=== PATIENT | male | born 1940 | race Caucasian/White ===

== ENCOUNTER 2017-08-18 10:35 | Outpatient (CLI) | payer MEDICARE ==
[2017-08-18 11:51] LABS: #Basophils 0.1 thou/uL (0.0-0.2); #Eosinphils 0.3 thou/uL (0.0-0.7); #Lymphocytes 1.4 thou/uL (1.20-3.40); #Monocytes 0.6 thou/uL (0.11-0.59); #Neutrophils 7.5 thou/uL (1.40-6.50); %Basophils 1.1 % (0.0-1.0); %Eosinophils 3.2 % (0.0-10.0); %Lymphocytes 14.1 % (21.0-51.0); %Neutrophils 75.7 % (42.0-75.0); Hemoglobin 16.3 g/dL (14.0-18.0); Mean Corpuscular HGB CONC 33.8 g/dL (32.0-36.0); Mean Corpuscular Hemoglobin 31.2 pg (27.0-31.0); Mean Corpuscular Volume 92.3 fl (80.0-94.0); Mean Platelet Volume 7.9 fL (7.4-10.4); Platelet Count 193 thou/uL (130-400); Red Blood Cell (RBC) Count 5.24 mill/uL (4.70-6.10); White Blood Cell (WBC) Count 9.9 thou/uL (4.8-10.8)
[2017-08-18 12:09] LABS: ALT (SGPT) 19 U/L (8-55); AST (SGOT) 19 U/L (5-34); Albumin 4.1 g/dL (3.4-4.8); Alkaline Phosphatase 105 U/L (40-150); Anion Gap 13 mmol/L (10-20); BUN (Urea Nitrogen) 19 mg/dL (8.4-25.7); Bilirubin, Total 0.8 mg/dL (0.2-1.2); Calc. Creatinine Clearance 0 mL/min (70-130); Calcium 9.6 mg/dL (7.8-10.44); Carbon Dioxide 25 mmol/L (23-31); Cardiac Risk 4.7 (Less than 4.5); Chloride 107 mmol/L (98-107); Cholesterol 160 mg/dl (< 200 Desired); Estimated GFR-MDRD 59; Globulin 2.9 g/dL (2.4-3.5); Glucose 96 mg/dL (83-110); HDL Cholesterol 34 mg/dL (>60 Neg Risk); LDL Cholesterol, Calculated 107 mg/dL; Potassium 4.9 mmol/L (3.5-5.1); Sodium 140 mmol/L (136-145); Triglycerides 93 mg/dL (Less than 150)
== END 2017-08-18 10:36 | disposition home or self-care (01) ==
LOC: BURLAB 10:35
PROVIDERS: ATTEND Internal Medicine Cardiovascular Disease
DX: I25.10 Atherosclerotic heart disease of native coronary artery without angina pectoris (principal)
CPT/HCPCS: 36415; 80053; 80061; 85025

== ENCOUNTER 2018-06-16 10:06 | Outpatient (CLI) | payer MEDICARE ==
--- NOTE | 2018-06-16 19:54 | RAD ---
CHEST TWO VIEWS: 06/16/18 Comparison is made with an 10/08/16 portable film. Again noted is a nodule in the superior portion of the right lower lobe. It measures 1.4 cm today whi ch is almost identical to the 2016 measurement and comparable to a 1.7 cm measurement on [address] CT at at time. Emphysematous changes are present throughout the lungs. While there is a little blunting of the left costophrenic angle, this is more likely due to the hyperinflation of the diaphragm than not. There are no large pleural effusions present. No new nodules were seen. An AICD is in place. 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 There are no congestive changes. IMPRESSION: 1. Little change since 10/08/16. 2. Diffuse emphysematous changes. 3. 1.4 to 1.5 cm rounded nodule in the right lower lobe superior portions. Minimal change since 2016. POS: HOME
== END 2018-06-16 10:07 | disposition home or self-care (01) ==
LOC: BURRAD 10:06
PROVIDERS: ATTEND Family Medicine
DX: R93.8 Abnormal findings on diagnostic imaging of other specified body structures (principal); R91.1 Solitary pulmonary nodule
CPT/HCPCS: 71046

== ENCOUNTER 2019-12-14 19:12 | Emergency (ER) | payer MEDICARE ==
[2019-12-14 20:00] LABS: #Lymphocytes 0.7 thou/uL (1.20-3.40); #Monocytes 0.3 thou/uL (0.11-0.59); #Neutrophils 5.1 thou/uL (1.40-6.50); %Basophils 0.5 % (0.0-1.0); %Eosinophils 0.5 % (0.0-10.0); %Lymphocytes 11.6 % (21.0-51.0); %Monocytes 5.1 % (0.0-10.0); %Neutrophils 82.3 % (42.0-75.0); Hemoglobin 10.7 g/dL (14.0-18.0); Mean Corpuscular HGB CONC 30.7 g/dL (32.0-36.0); Mean Corpuscular Hemoglobin 28.8 pg (27.0-31.0); Mean Corpuscular Volume 93.7 fL (78.0-98.0); Mean Platelet Volume 6.3 fL (7.4-10.4); Platelet Count 237 thou/uL (130-400); Red Blood Cell (RBC) Count 3.74 mill/uL (4.70-6.10); White Blood Cell (WBC) Count 6.2 thou/uL (4.8-10.8)
[2019-12-14 20:12] LABS: ALT (SGPT) 8 U/L (8-55); AST (SGOT) 13 U/L (5-34); Albumin 3.4 g/dL (3.4-4.8); Alkaline Phosphatase 68 U/L (40-110); Anion Gap 15 mmol/L (10-20); BUN (Urea Nitrogen) 15 mg/dL (8.4-25.7); Bilirubin, Total 0.5 mg/dL (0.2-1.2); Calc. Creatinine Clearance 0 mL/min (70-130); Calcium 9.1 mg/dL (7.8-10.44); Carbon Dioxide 23 mmol/L (23-31); Chloride 104 mmol/L (98-107); Estimated GFR-MDRD 79; Globulin 2.7 g/dL (2.4-3.5); Glucose 99 mg/dL (83-110); Potassium 4.3 mmol/L (3.5-5.1); Protein, Total 6.1 g/dL (5.8-8.1); Sodium 138 mmol/L (136-145)
[2019-12-14 21:36] LABS: Bilirubin Negative (Negative); Blood, Urine Negative (Negative); Clarity Hazy (Clear); Glucose, Urine (Dipstick) Negative (Negative); Leukocyte Negative (Negative); Nitrite Negative (Negative); Protein, Urine (Dipstick) Negative (Neg-Trace); Urobilinogen 0.2 mg/dL (Less than 2)
[2019-12-14] MEDS ORDERED: Furosemide 40 MG/4 ML VIAL ONE (22:12)
--- NOTE | 2019-12-14 22:13 | RAD ---
PORTABLE CHEST 12/14/19 An AP portable film at 2016 is compared with a 08/28/19 study. The lungs are actually clearer today than they were before. Minor haziness on the left is substantial ly improved from previously. There is no area that is diagnostic of a definite acute infiltrate. Ther e is a vague nodular density in the mid right lung that measures 1.5 cm in size and was present previ ously. It has not changed. A linear streak in the left costophrenic angle is probably a little subse gmental atelectasis. An AICD is in place. A tracheostomy tube is present as before and seems to be ap propriately in the trachea. IMPRESSION: 1. Some chronic changes in the lungs but no definite acute infiltrate. The lungs actually have i mproved compared to the prior study. 2. Very faint 1.5 cm nodular density in the right mid lung. This is seen on the prior study and has not really changed. POS: HOME
[2019-12-14] MEDS ORDERED: Cefepime 1 GM VIAL ONE (22:22)
== END 2019-12-14 22:35 | disposition short-term general hospital (02) ==
LOC: BURERS 19:12
DX: I11.0 Hypertensive heart disease with heart failure (principal); I50.9 Heart failure, unspecified; I25.2 Old myocardial infarction; R06.89 Other abnormalities of breathing; Z87.891 Personal history of nicotine dependence; Z79.899 Other long term (current) drug therapy; Z79.82 Long term (current) use of aspirin
CPT/HCPCS: 36415; 71045; 80053; 81003; 83605; 83880; 84484; 85025; 87040; 87086; 87804; 93005; 96374; 96375; J0692; J1940; J7620

== ENCOUNTER → 2020-02-15 | Day surgery (SDC) | payer MEDICARE ==
[~2020-02-15] MED LIST: Sodium Chloride 0.9% 1,000 ML IV SCH
[2020-02-15 15:18] VITALS: BP 110/56; TEMP 97.8
== END ==
LOC: BUR/OP 14:46
PROVIDERS: ATTEND Internal Medicine Hematology & Oncology
DX: C32.1 Malignant neoplasm of supraglottis (principal); Z88.5 Allergy status to narcotic agent; Z88.8 Allergy status to other drugs, medicaments and biological substances
CPT/HCPCS: 96360; 96361

== ENCOUNTER 2020-03-27 15:37 | Emergency (ER) | payer MEDICARE, OTHER ==
[2020-03-27 17:16] LABS: ALT (SGPT) 18 U/L (8-55); AST (SGOT) 17 U/L (5-34); Albumin 3.2 g/dL (3.4-4.8); Alkaline Phosphatase 61 U/L (40-110); Anion Gap 14 mmol/L (10-20); BUN (Urea Nitrogen) 18 mg/dL (8.4-25.7); Bilirubin, Total 0.9 mg/dL (0.2-1.2); Calc. Creatinine Clearance 0 mL/min (70-130); Carbon Dioxide 25 mmol/L (23-31); Chloride 102 mmol/L (98-107); Estimated GFR-MDRD Greater than 90; Globulin 2.5 g/dL (2.4-3.5); Glucose 96 mg/dL (83-110); Potassium 4.2 mmol/L (3.5-5.1); Protein, Total 5.7 g/dL (5.8-8.1); Sodium 137 mmol/L (136-145)
[2020-03-27 17:17] LABS: Band 10 % (5-11); Elliptocytes SLIGHT = 2-5 cells (100X) (0-1/hpf); Hemoglobin 11.9 g/dL (14.0-18.0); Lymphocytes 1 % (21-51); MDiff Complete? YES; Mean Corpuscular HGB CONC 32.4 g/dL (32.0-36.0); Mean Corpuscular Hemoglobin 29.7 pg (27.0-31.0); Mean Corpuscular Volume 91.6 fL (78.0-98.0); Mean Platelet Volume 6.6 fL (7.4-10.4); Monocytes 1 % (0-10); Neutrophil 88 % (42-75); Platelet Count 177 thou/uL (130-400); RBC Distribution Width 15.2 % (11.5-14.5); Toxic Granulation SLIGHT; White Blood Cell (WBC) Count 4.9 thou/uL (4.8-10.8)
[2020-03-27 17:36] LABS: CKMB 1.5 ng/mL (0-6.6)
[2020-03-27] MEDS ORDERED: Furosemide 40 MG/4 ML VIAL SLOW IVP SCH (18:00)
[2020-03-27] MEDS ORDERED: Azithromycin 250 MG TAB ONE (18:01)
[2020-03-27] MEDS ORDERED: cefTRIAXone\\ROCEPHIN 1 GM VIAL ONE (18:01)
[2020-03-27] MEDS ORDERED: Furosemide 40 MG/4 ML VIAL ONE (18:01)
[2020-03-27] MEDS ORDERED: Aspirin Chewable 81 MG TAB ONE (18:01)
--- NOTE | 2020-03-27 18:03 | RAD ---
PORTABLE CHEST: 03/27/20 An AP portable film at 1608 is compared with a 01/02/2020 study from [facility]. An AICD and tracheostomy tube are in place as before. The lungs are hyperexpanded as usual. A nodular density in the right mid lung zone is present as before. Today, it was measured at about 1.8 cm in s ize. The lower lobes near the diaphragm have a considerable amount of streaking in them, particularly the right lower lobe, compared to the prior exam. Early infiltrates here are presumed. There are no large effusions, though there may be a small amount on the right. The upper lobes are relatively merced r. The heart size is normal. IMPRESSION: 1. Interval appearance of some basilar streaking, right base more than left. Early infiltrates h ere suggest the possibility of infection. 2. 1.8 cm nodular density in the right mid lung area, fairly similar to the December exam. POS: HOME
[2020-03-27] MEDS ORDERED: cefTRIAXone\\ROCEPHIN 1 GM in Sodium Chloride 0.9% 100 ML IVPB SCH (18:15)
[2020-03-27] MEDS ORDERED: Aspirin 325 MG TAB PO SCH (18:15)
[2020-03-27] MEDS ORDERED: Azithromycin 250 MG TAB PO SCH (18:15)
[2020-03-28 11:28] LABS: SARS-CoV-2 MS2 Positive; SARS-CoV-2 N Gene Negative; SARS-CoV-2 S Gene Negative; SARS-CoV-2 orf1ab Negative
== END 2020-03-27 18:39 | disposition home or self-care (01) ==
LOC: BURERS 15:37
DX: J18.9 Pneumonia, unspecified organism (principal); I11.0 Hypertensive heart disease with heart failure; I50.9 Heart failure, unspecified; R79.89 Other specified abnormal findings of blood chemistry; E78.5 Hyperlipidemia, unspecified; I25.2 Old myocardial infarction; Z87.891 Personal history of nicotine dependence; Z79.899 Other long term (current) drug therapy; Z79.82 Long term (current) use of aspirin
CPT/HCPCS: 71045; 80053; 82553; 83605; 83880; 84484; 85025; 87040; 87081; 87430; 87635; 87804; 93005; 96374; 96375; J0696; J1940; U0002

== ENCOUNTER 2020-07-12 11:19 | Emergency (ER) | payer MEDICARE ==
[2020-07-12 12:20] LABS: Hemoglobin 11.1 g/dL (14.0-18.0); Mean Corpuscular Hemoglobin 28.9 pg (27.0-31.0); Mean Platelet Volume 6.6 fL (7.4-10.4); Platelet Count 236 thou/uL (130-400); RBC Distribution Width 13.6 % (11.5-14.5); Red Blood Cell (RBC) Count 3.84 mill/uL (4.70-6.10); White Blood Cell (WBC) Count 5.3 thou/uL (4.8-10.8)
[2020-07-12 12:34] LABS: ALT (SGPT) 22 U/L (8-55); AST (SGOT) 12 U/L (5-34); Albumin 2.9 g/dL (3.4-4.8); Alkaline Phosphatase 64 U/L (40-110); Anion Gap 16 mmol/L (10-20); BUN (Urea Nitrogen) 50 mg/dL (8.4-25.7); Bilirubin, Total 0.5 mg/dL (0.2-1.2); Calc. Creatinine Clearance 0 mL/min (70-130); Calcium 9.3 mg/dL (7.8-10.44); Carbon Dioxide 27 mmol/L (23-31); Chloride 101 mmol/L (98-107); Estimated GFR-MDRD 42; Globulin 2.9 g/dL (2.4-3.5); Glucose 125 mg/dL (83-110); Potassium 3.8 mmol/L (3.5-5.1); Protein, Total 5.8 g/dL (5.8-8.1); Sodium 140 mmol/L (136-145)
[2020-07-12 12:37] LABS: Band 55 % (5-11); Lymphocytes 3 % (21-51); MDiff Complete? YES; Monocytes 9 % (0-10); Neutrophil 33 % (42-75); Toxic Granulation SLIGHT
[2020-07-12] MEDS ORDERED: Piperacillin/Tazobactam 4.5 GM VIAL ONE (12:43)
[2020-07-12] MEDS ORDERED: Sodium Chloride 0.9% 100 ML ONE (12:43)
--- NOTE | 2020-07-12 12:44 | RAD ---
CHEST 1 VIEW: Date: 07/12/2020 HISTORY: Shortness of breath. History of lung cancer. COMPARISON: 05/31/2020. FINDINGS: Tracheostomy tube in place. Postop midline sternotomy. Left ICD. Stable nodule in the right mid lung zone. Stable left costophrenic angle blunting. Stable increased linear and interstitial markings bila terally. IMPRESSION: Stable appearance of the chest with increased linear and interstitial markings bilaterally and left c ostophrenic angle blunting, and stable right mid lung zone nodule. No new process. POS: OFF
[2020-07-12 12:51] LABS: CKMB 1.2 ng/mL (0-6.6)
--- NOTE | 2020-07-12 13:50 | CT ---
Exam: CT angiogram of the chest HISTORY: Hypoxia. Lung cancer. COMPARISON: 04/22/2020 TECHNIQUE: CT angiogram of the chest is performed in the axial plane. Three-dimensional reformatted i mages are submitted for interpretation FINDINGS: Lower neck and axilla: Incompletely evaluated supra glottic mass and right neck lymph node Mediastinum: No mass, lymphadenopathy or hematoma. HEART: Normal size. No significant pericardial fluid. Aorta: No aneurysm or dissection Upper solid abdominal viscera: No abnormality. Stable hypodensity in the left hepatic lobe. Small boubacar unt of perisplenic free fluid. Trachea and central bronchi: Table tracheostomy. Pleural spaces: Small left-sided effusion. Lung parenchyma: Stable emphysematous change Right lung: Right lower lobe consolidation may be due to atelectasis, pneumonia or aspiration. Findin gs are similar to the previous examination and a component of scarring cannot be excluded. Redemonstration of a solid mass in the posterior segment of the right upper lobe measuring 1.5 x 0.9 cm, previous measuring 1.6 x 1.2 cm. Left lung: Mixed attenuation involving the left lower lobe with fluid and air suggesting lung parench ymal necrosis/intraparenchymal abscess, measuring 3.0 x 4.8 cm. Pneumothorax: None Osseous structures: No lytic or blastic lesions Pulmonary arteries: Adequate contrast opacification pulmonary arterial system to the level of segment al arteries. No filling defect to suggest pulmonary embolism IMPRESSION: 1. No evidence of pulmonary artery embolism to the level of the segmental arteries 2. Persistent consolidation in the right lower lobe which may represent atelectasis, pneumonia, aspir ation. 3. Heterogeneous attenuation in the left lower lobe with air and fluid suggesting possible lung paren chymal necrosis. A intraparenchymal abscess cannot be entirely excluded. Correlate clinically. 4. Redemonstration of a solid nodule in the posterior right upper lobe.
[2020-07-12] MEDS ORDERED: HYDROcodone/Acetaminophen 10/325 mg Tablet ONE (15:10)
== END 2020-07-12 15:39 | disposition short-term general hospital (02) ==
LOC: BURERS 11:19
DX: J86.9 Pyothorax without fistula (principal); C78.00 Secondary malignant neoplasm of unspecified lung; C14.0 Malignant neoplasm of pharynx, unspecified; I25.2 Old myocardial infarction; I11.0 Hypertensive heart disease with heart failure; I50.9 Heart failure, unspecified; E78.5 Hyperlipidemia, unspecified; Z95.1 Presence of aortocoronary bypass graft; Z87.891 Personal history of nicotine dependence; Z79.82 Long term (current) use of aspirin; Z79.899 Other long term (current) drug therapy
CPT/HCPCS: 71045; 71275; 80053; 82553; 83605; 84484; 85025; 85379; 86140; 87040; 87070; 87077; 87186; 87205; 93005; 94760; 96365; 96367; J2543; J3370; J3490

== ENCOUNTER 2020-07-21 01:45 | Emergency (ER) | payer MEDICARE ==
[2020-07-21] MEDS ORDERED: Silver Nitrate Application 1 EACH ONE (01:53)
== END 2020-07-21 02:17 | disposition home or self-care (01) ==
LOC: BURERS 01:45
DX: K94.21 Gastrostomy hemorrhage (principal); I25.2 Old myocardial infarction; E78.5 Hyperlipidemia, unspecified; I11.0 Hypertensive heart disease with heart failure; I50.9 Heart failure, unspecified; Z87.891 Personal history of nicotine dependence; Z79.899 Other long term (current) drug therapy; Z79.82 Long term (current) use of aspirin
CPT/HCPCS: 99283